=== PATIENT | female | born 1955 | race Caucasian/White ===

== ENCOUNTER → 2019-02-11 | Outpatient (CLI) | payer BC ==
[~2019-02-11] MED LIST: ACEBUTCAFT PO; AMLO5; AMOCLA875 PO; B Complete1 EACH PO; CALCA500CH PO; CETI10 PO; CITA20; CITA20 PO; CLON.1 PO; Calcium Magnes1 EAC1 PO; Celexa10 MG PO; DHEA PO; DICL50ER; Daily Multiple1 EACH PO; Diclofenac Sodi50 MG; Diclofenac Sodi50 MG PO; EZET10-20 PO; Esgic Tablet1 EACH PO; Excedrin Extra1 EACH; Excedrin Extra1 EACH PO; FURO20; FURO20 PO; HYDACE5 PO; HYDR1TAB94 PO; LISI20; LISI20 PO; LORA10 PO; LORA10ER; MOMENI; MONT10T PO; MULVITMIND PO; Mirapex0.25 MG PO; OMEP20ER; OMEP20ER PO; OMEPRAZOLE20 MG PO; OXYACE5T PO; OXYB5 PO; PHENTERMINE 30 MG; PIRO20 PO; POTCHL20ER; POTCHL20ER PO; PRAM.5 PO; Prilosec Otc20 MG PO; RANI150 PO; ROSU10TA; ROSU10TA PO; RXHYDACE PO; RXPHEN200 PO; SIMV10 PO; TRAACE; TUMERIC PO; VITAMIN B COMPLEX PO; WARF4 PO; ZOLP5 PO
== END | disposition home or self-care (01) ==
LOC: PLD 08:19 → LAB SHORT 08:19
DX: N85.8 Other specified noninflammatory disorders of uterus (principal)
CPT/HCPCS: 88305

== ENCOUNTER 2019-03-19 14:37 | Day surgery (SDC) | payer BC ==
[~2019-03-19] VITALS: Ht 157.5 cm; Wt 107.7 kg
--- NOTE | 2019-03-19 16:31 | NUR ---
03/19/19 1631 Tegan Pearson PT REQUIRING SUPPLEMENTAL OXYGEN AT THIS TIME. ENCOURAGING PT TO COUGH AND TAKE SLOW, DEEP BREATHS
--- NOTE | 2019-03-19 16:50 | NUR ---
03/19/19 1650 Tegan Pearson PT CHATTING WITH AT BEDSIDE. PT DENIES PAIN AND NAUSEA AT THIS TIME. TOLERATING PO FLUIDS AND COOKIES WELL. VSS. MINIMAL RED BLOOD IN PAD PRIOR TO TRANSFER, APPROXIMATELY 1/2 TABLESPOON
== END 2019-03-19 17:15 | disposition home or self-care (01) ==
LOC: ORSCSDS 14:37
PROVIDERS: Obstetrics & Gynecology
PROC: 0UDB8ZX Extraction of Endometrium, Via Natural or Artificial Opening Endoscopic, Diagnostic (ICD-10-PCS; principal; 2019-03-19 16:00)
PROC: 0UB98ZX Excision of Uterus, Via Natural or Artificial Opening Endoscopic, Diagnostic (ICD-10-PCS; principal; 2019-03-19 16:00)
DX: N95.0 Postmenopausal bleeding (principal); N84.0 Polyp of corpus uteri; R93.89 Abnormal findings on diagnostic imaging of other specified body structures; I10 Essential (primary) hypertension; G47.33 Obstructive sleep apnea (adult) (pediatric); J45.909 Unspecified asthma, uncomplicated; E78.5 Hyperlipidemia, unspecified; E66.01 Morbid (severe) obesity due to excess calories; Z68.41 Body mass index [BMI] 40.0-44.9, adult; Z79.899 Other long term (current) drug therapy
CPT/HCPCS: 88305; J1885; J2405; J2704; J2765; J3010

== ENCOUNTER → 2020-09-30 | Outpatient (CLI) | payer BC ==
[~2020-09-30] MED LIST changes: +Ativan1 MG; +DICL25ER PO; +Diclofenac Pota50 MG PO
== END | disposition home or self-care (01) ==
LOC: LAB SHORT 11:00 → LAB 11:00
DX: R30.0 Dysuria (principal)
CPT/HCPCS: 87077; 87086; 87186

== ENCOUNTER → 2021-02-22 | Outpatient (CLI) | payer BC | END | disposition home or self-care (01) | LOC: LAB SHORT 08:16 → LAB 08:16 | DX: L82.1 Other seborrheic keratosis (principal); D22.72 Melanocytic nevi of left lower limb, including hip | CPT/HCPCS: 88305 ==

== ENCOUNTER 2021-04-03 06:21 | Day surgery (SDC) | payer BC ==
[~2021-04-03] VITALS: Ht 157.5 cm; Wt 111.6 kg
[~2021-04-03 06:21] MED LIST changes: +METO25ER
[2021-04-03] MEDS ORDERED: Aspir 8181 MG PO (07:00)
[2021-04-03] MEDS ORDERED: TRAM50 PO (07:02)
--- NOTE | 2021-04-03 08:12 | NUR ---
04/03/21 0812 Adan Cartwright 1 MG EPI ADDED TO THE FIRST BAG OF LR PER ORDER FOR IRRIGATION.
--- NOTE | 2021-04-03 13:11 | NUR ---
04/03/21 1311 Anusha Latif LATE ENTRY:1039 PATIENT RESTING IN [facility] WITH OXYGEN VIA FACEMASK RUNNING AT 10L WITH SP02 AT 90%. PATIENT RESPONDS APPROPRIATELY TO VOICE COMMANDS. PATEINT STILL WITH EXPIRATORY WHEEZING. 1045: PATIENT MUCH MORE ALERT AND ORIENTED STATING SHE IS COMFORTABLE TO GET UP TO CHAIR. PATIENT ON 5L VIA FACEMASK WITH SPO2 OF 91% WHILE SITTING AT BEDSIDE BEFORE TRANSER. PATIENT ASSISTED TO BEDSIDE LOUNGER CHAIR AT 1046 WITH TWO PERSON ASSIST. PATIENT ALMOST IMMEDIATELY AFTER BEING TRANSFERRED TO CHAIR HOLDING THROAT STATING CANT BREATH ATTMEPTING TRIPOD POSITIONING. OXYGEN STILL BEING ADMINISTERED AT 10L VIA FACEMASK INCREASED TO 15L. SP02 CONTINUED TO TREND DOWN TO LOW 57, WITH MOTTLING OF SKIN, AND PATIENT BECOMING LESS RESPONSIVE TO VERBAL STIMULI. CALLED FOR ASSISTANCE DUE TO UNSTABLE VS AND EPISODE AT 1048. ORDERED DUONEB WHICH WAS STARTED AT 1050 AND THEN CALLED FOR WHO WAS ANESTHELOGIST FOR PATIENT. ARRIVED AT 1052 TO BEDSIDE TO ASSESS PATIENT. PATIENTS SATS AND BREATHING CONTINUED TO BECOME MORE LABORED, WET SOUNDING, WITH EXPIRATORY WHEEZING. ORDERED FOR STAT CHEST X RAY AND TO MOVE PATIENT BACK TO [facility] PATIENT TRANSFERRED BACK TO [facility] AT 1057. PATIENTS SATURATION LEVEL WAS IN MID 60'S TO LOW 70'S IN [facility] W OXYGEN STILL AT 15L FACEMASK. INSERTED ORAL AIRWAY AT 1058. PATIENT TRANSFERRED BACK TO OR VIA [facility] WITH AT BEDSIDE AT 1059. PATIENT CONNECTED TO ANESTHESIA SET UP IN OR AT 1100. RADIOLOGY IN ROOM AT 1104 FOR CHEST X RAY. WHEN X RAY COMPLETED PATIENT MOVED TO REVERSE [place] POSITION FOR INTUBATION BY AND NG PLACEMENT THROUGH ORAL WAY FOR STOMACH SUCTION WITH POSITIVE RESULTS. CHARGE NURSE CALLED TO CALL AND INITIATE ICU PLACEMENT FOR PATIENT WELL NOTIFYING ORTHO SEO COORDINATOR SURGEONS. RADIOLOGY PROVIDER CALLED WITH X RAY RESULTS OF NEGATIVE FOR PNEOMOTHROAX TO WHILE IN OR. RT IN ROOM AT 1140 TO ASSIST WITH TRANSFER OF PATIENT TO ICU. TRANSFER STARTED WITH PORTABLE MONITORS AND AMBU RESPITATIONS VIA RT AT 1150. REPORT GIVEN AT BEDSIDE TO PRIMARY RN STUART BY THIS RN WELL FOR QUESTIONS. FAMILY NOTIFIED VIA .
== END 2021-04-03 11:50 | disposition home or self-care (01) ==
LOC: ORSCSDS 06:21
PROVIDERS: Orthopaedic Surgery
PROC: 0RNJ4ZZ Release Right Shoulder Joint, Percutaneous Endoscopic Approach (ICD-10-PCS; principal; 2021-04-03 07:30)
PROC: 0LM14ZZ Reattachment of Right Shoulder Tendon, Percutaneous Endoscopic Approach (ICD-10-PCS; principal; 2021-04-03 07:30)
PROC: 0LS34ZZ Reposition Right Upper Arm Tendon, Percutaneous Endoscopic Approach (ICD-10-PCS; principal; 2021-04-03 07:30)
DX: M75.121 Complete rotator cuff tear or rupture of right shoulder, not specified as traumatic (principal); M75.41 Impingement syndrome of right shoulder; M75.21 Bicipital tendinitis, right shoulder; I10 Essential (primary) hypertension; G47.33 Obstructive sleep apnea (adult) (pediatric); F17.210 Nicotine dependence, cigarettes, uncomplicated; E66.01 Morbid (severe) obesity due to excess calories; Z68.42 Body mass index [BMI] 45.0-49.9, adult; K21.9 Gastro-esophageal reflux disease without esophagitis; Z79.899 Other long term (current) drug therapy
CPT/HCPCS: 71045; C1713; J0171; J0690; J1100; J1940; J2250; J2370; J2405; J2704; J3010; J7120

== ENCOUNTER 2021-04-03 11:53 | Inpatient (IN) | payer BC, OTHER ==
[~2021-04-03] VITALS: Ht 157.5 cm; Wt 107.2 kg
[~2021-04-03 11:53] MED LIST changes: +Aspir 8181 MG PO; +TRAM50 PO
[2021-04-03 12:43] LABS: PCO2 Arterial 55.2 mmHg (35-45); PO2 Arterial 64.1 mmHg (80-100); pH Blood Arterial 7.26 (7.35-7.45)
[2021-04-03 13:04] LABS: BASOPHILS ABSOLUTE AUTO 0.05 K/mm3 (0.00-0.23); BASOPHILS PERCENT AUTO 0 % (0-2); EOSINOPHILS ABSOLUTE AUTO 0.08 K/mm3 (0.00-0.68); EOSINOPHILS PERCENT AUTO 1 % (0-6); Hematocrit 41.6 % (33.0-51.0); Hemoglobin 13.3 g/dL (11.5-16.0); IMMATURE GRAN ABSOLUTE AUTO 0.06 K/mm3 (0.00-0.10); IMMATURE GRAN PERCENT AUTO 0 % (0-1); LYMPHOCYTES ABSOLUTE AUTO 5.78 K/mm3 (0.84-5.20); LYMPHOCYTES PERCENT AUTO 39 % (21-46); MONOCYTES PERCENT AUTO 1 % (4-13); Mean Corpuscular HGB 29.8 pg (26.0-34.0); Mean Corpuscular Volume 93 fL (80-100); Mean Platelet Volume 10.7 fL (9.1-12.4); NEUTROPHILS PERCENT AUTO 58 % (41-73); Platelet Count 273 K/mm3 (150-400); RDW Coefficient Variation 13.3 % (11.7-14.2); RDW Standard Deviation 45.6 fL (35.1-46.3); Red Blood Cell Count 4.47 M/mm3 (3.80-5.20); White Blood Cell Count 14.77 K/mm3 (4.00-11.30)
[2021-04-03 13:20] LABS: Alanine Aminotransfer (ALT/SGP 40 U/L (12-78); Albumin, Blood 3.2 g/dL (3.4-5.0); Albumin/Globulin Ratio 0.9 (0.8-1.8); Alk Phos 104 U/L (50-136); Anion Gap 6 mmol/L (6-16); Aspartate Aminotrans (AST/SGOT 42 U/L (12-37); Bilirubin, Total 0.3 mg/dL (0.1-1.0); Blood Urea Nitrogen 11 mg/dL (8-24); Bun/Creatinine Ratio 12.9 (12.0-20.0); CO2, Blood 25 mmol/L (21-32); Calcium, Blood 8.5 mg/dL (8.5-10.1); Chloride, Blood 106 mmol/L (98-108); Creatinine, Blood 0.85 mg/dL (0.40-1.00); Globulin, Blood 3.6 g/dL (2.2-4.0); Glomerular Filtration Rate >60 (60-); Glucose, Blood 223 mg/dL (70-99); Magnesium, Blood 1.8 mg/dL (1.6-2.4); Potassium, Blood 4.3 mmol/L (3.5-5.5); Sodium, Blood 137 mmol/L (136-145); Total Protein, Blood 6.8 g/dL (6.4-8.2)
--- NOTE | 2021-04-03 13:20 | NUR ---
ASSUMING CARE OF PT. PT INTUBATED, AC 400/8/60% ATTEMPTED TO PUT PT ON PS TO PLACE TO EXTUBATE, PT FAILED ABGS DRAWN PH 7.[address] JUNIOR[address] PL[address] TO EXTUBATE IN AM. CXR TAKEN. DR JUNIOR VIEWED AT BEDSIDE CONFIRMED PLACEMENT. PT FOLLOWS COMMANDS. MEDICATED FOR PAIN.
[2021-04-03 13:40] LABS: Source, Urine Catheter
[2021-04-03 13:47] LABS: Appearance, Urine Clear (Clear); Bilirubin, Urine Neg (Neg); Blood, Urine 5+ (Neg); Color, Urine Yellow (P-Yellow); Glucose Qualitative, Urine Neg (Neg); Ketones, Urine Neg (Neg); Leukocyte Esterase, Urine 1+ (Neg); Nitrite, Urine Neg (Neg); Protein, Urine 2+ (Neg); Urobilinogen, Urine NORM (Normal)
[2021-04-03 14:00] LABS: White Blood Cells, Urine 0-2 /hpf (0-5)
[2021-04-03 14:01] LABS: Squamous Epithelial Cells Not Seen /hpf (Few)
[2021-04-03 14:02] LABS: Bacteria Few /hpf
--- NOTE | 2021-04-03 18:34 | NUR ---
SUMMERY CRITICAL TROP 0.[address] JUNIOR, REPEAT IN AM. LACTIC ACID 3.[address] JUNIOR. PT MEDICATED FOR PAIN X2 RIGHT ARM IN SLING WITH COLD THERAPY. IGOR (SON) UPDATED. EKG DONE IN CHART.
--- NOTE | 2021-04-03 21:55 | NUR ---
ASSUMED PT CARE AT 1915 PT INTUBATED AND SEDATED. VENT AC/VC 18, VT 400, PEEP 8, FIO2 35%, RR 18, SPO2 >90%. PROPOFOL AT 60MCG/KG/MIN AND NS AT 75MLS/HR VIA POWERGLIDE TO LEFT UPPER ARM. PT STILL ABLE TO OPEN EYES TO VERBAL STIMULI; MAKES PURPOSEFUL MOVEMENT TOWARD ETT. NSR HR 70'S; BP'S STABLE, SEE FLOWSHEET. OG CLAMPED. VAUGHAN CATHETER IS PATENT AND DRAINING MINIMAL AMOUNTS OF DARK CONSTANCE COLORED URINE. RIGHT SHOULDER SPLINT WAS NOT ACCURATELY PLACED D/T SHOULDER BEING ICED. THEREFORE, REMOVED COMPLETELY AT THIS TIME. NO ORDERS FOR ICING OR SPLINT PLACEMENT. DR. AYOUB CONSULTED; HOWEVER, HAS NOT BEEN NOTIFIED. WILL REACH OUT TO ANSWERING SERVICE THIS EVENING. KAYCEE HOSE REMOVED AND SCD'S PLACED. SEE SHIFT SUMMARY FOR FURTHER DETAILS.
[2021-04-04 04:35] LABS: BASOPHILS ABSOLUTE AUTO 0.02 K/mm3 (0.00-0.23); BASOPHILS PERCENT AUTO 0 % (0-2); EOSINOPHILS PERCENT AUTO 0 % (0-6); Hematocrit 38.2 % (33.0-51.0); Hemoglobin 12.4 g/dL (11.5-16.0); IMMATURE GRAN ABSOLUTE AUTO 0.06 K/mm3 (0.00-0.10); IMMATURE GRAN PERCENT AUTO 0 % (0-1); LYMPHOCYTES ABSOLUTE AUTO 5.95 K/mm3 (0.84-5.20); LYMPHOCYTES PERCENT AUTO 36 % (21-46); MONOCYTES ABSOLUTE AUTO 0.59 K/mm3 (0.16-1.47); MONOCYTES PERCENT AUTO 4 % (4-13); Mean Corpuscular HGB Conc 32.5 g/dL (31.5-36.5); Mean Corpuscular Volume 92 fL (80-100); Mean Platelet Volume 10.5 fL (9.1-12.4); NEUTROPHILS ABSOLUTE AUTO 10.16 K/mm3 (1.96-9.15); NEUTROPHILS PERCENT AUTO 61 % (41-73); Platelet Count 286 K/mm3 (150-400); RDW Coefficient Variation 13.2 % (11.7-14.2); RDW Standard Deviation 45.1 fL (35.1-46.3); Red Blood Cell Count 4.14 M/mm3 (3.80-5.20); White Blood Cell Count 16.78 K/mm3 (4.00-11.30)
--- NOTE | 2021-04-04 04:42 | NUR ---
SEDATION VACATION/SBT AT 0400 PROPOFOL WAS TURNED OFF. PT ABLE TO AROUSE VERY EASILY TO VERBAL STIMULI, WELL FOLLOW COMMANDS APPROPRIATELY. NODS HEAD YES/NO TO QUESTIONS. ABLE TO TRACK EYES AND MOVE EXTREMITIES PURPOSEFULLY. SBT STARTED AT 0 WHEN PT WAS CHANGED TO SPONTANEOUS WITH PS 8/5; FIO2 40%. VSS REMAINED STABLE, SEE FLOWSHEET. PT TOLERATED WELL, SEE RT NOTE FOR FURTHER DETAILS. PROPOFOL RESTARTED AT 40MCG/KG/MIN AND PT STILL ABLE TO OPEN EYES AND FOLLOW COMMANDS WITH MINIMAL STIMULATION. ALSO CLARIFIED THAT PT PREFERS TO BE CALLED "JUSTEN"
[2021-04-04 05:09] LABS: Alanine Aminotransfer (ALT/SGP 36 U/L (12-78); Albumin, Blood 3.2 g/dL (3.4-5.0); Albumin/Globulin Ratio 0.9 (0.8-1.8); Alk Phos 88 U/L (50-136); Anion Gap 7 mmol/L (6-16); Aspartate Aminotrans (AST/SGOT 31 U/L (12-37); Bilirubin, Total 0.4 mg/dL (0.1-1.0); Blood Urea Nitrogen 14 mg/dL (8-24); Bun/Creatinine Ratio 16.4 (12.0-20.0); CO2, Blood 24 mmol/L (21-32); Calcium, Blood 8.4 mg/dL (8.5-10.1); Chloride, Blood 103 mmol/L (98-108); Creatinine, Blood 0.85 mg/dL (0.40-1.00); Globulin, Blood 3.5 g/dL (2.2-4.0); Glomerular Filtration Rate >60 (60-); Glucose, Blood 166 mg/dL (70-99); Magnesium, Blood 1.6 mg/dL (1.6-2.4); Potassium, Blood 4.3 mmol/L (3.5-5.5); Sodium, Blood 134 mmol/L (136-145); Total Protein, Blood 6.7 g/dL (6.4-8.2)
--- NOTE | 2021-04-04 05:51 | NUR ---
END OF SHIFT SUMMARY NO SIGNIFICANT CHANGES SINCE ASSUMED CARE NOTE. SEE SEDATION VACATION/SBT NOTE FOR MORNING WEAN STATUS. VENT REMAINS AC/VC 18, VT 400, PEEP 8, FIO2 45%. PROPOFOL AT 40MCG/KG/MIN. NS AT 75ML/HR. OGT CLAMPED. ICE MACHINE REMAINS TO RIGHT SHOULDER. PT MEDICATED TWICE WITH FENTANYL THIS SHIFT; SHE IS ABLE TO NOD HEAD "YES" TO PAIN. ORDERS OBTAINED TO CHANGE FENTANYL Q4 PRN TO Q2 PRN. VAUGHAN CATHETER IS PATENT AND DRAINING DARK, CONSTANCE COLORED URINE TO GRAVITY; 500CC OUT THIS SHIFT. CRITICAL TROPONIN CALLED TO DR. JUNIOR WITH NO NEW ORDERS. HR 80'S; NSR. BP'S STABLE, SEE FLOWSHEET. TMAX 99.3. WILL CONTINUE TO MONITOR UNTIL REPORT IS HANDED OFF TO ONCOMING RN.
--- NOTE | 2021-04-04 09:19 | NUR ---
PT EXTUBATED, ON 5L NC SATS 92-95%. FOLLOWING COMMANDS. AAOX4. ABLE TO COUGH AND CLEAR OWN SECRETIONS. DENIES PAIN. ORIENTED TO UNIT AND USE OF CALL HOOK
[2021-04-04 13:13] LABS: CPK Creatine Kinase 175 U/L (26-193)
[2021-04-04 15:48] LABS: International Normalized Ratio 0.98; Prothrombin Time Results 10.3 Sec (9.7-11.5)
--- NOTE | 2021-04-04 18:01 | NUR ---
SHIFT SUMMERY CTA= + FOR P.E TX HEPARIN GTT INFUSING RESP: NC WEANED OFF PT NOW ON RA HOME MEDS STARTED PAIN MGT. PRN MEDS GIVEN RIGHT ARM IN SLING WITH COLD THERAPY 20MINS ON EVERY HOUR
--- NOTE | 2021-04-04 19:10 | NUR ---
Assumed care. Report received from anaid CARSON. Pt sitting in recliner watching TV at this time. Patient pleasant and cooperative, alert and oriented X 4. Pt on room air. Powerglide in TOMAS, IV access in R/hand. Heparin drip 15 units/kg/hr. Welch catheter in place, draining yellow urine. No acute needs noted at this time, will continue to monitor.
[2021-04-05 05:05] LABS: BASOPHILS ABSOLUTE AUTO 0.07 K/mm3 (0.00-0.23); BASOPHILS PERCENT AUTO 1 % (0-2); EOSINOPHILS ABSOLUTE AUTO 0.12 K/mm3 (0.00-0.68); EOSINOPHILS PERCENT AUTO 1 % (0-6); Hematocrit 38.4 % (33.0-51.0); Hemoglobin 12.2 g/dL (11.5-16.0); IMMATURE GRAN ABSOLUTE AUTO 0.09 K/mm3 (0.00-0.10); IMMATURE GRAN PERCENT AUTO 1 % (0-1); LYMPHOCYTES ABSOLUTE AUTO 6.65 K/mm3 (0.84-5.20); LYMPHOCYTES PERCENT AUTO 46 % (21-46); MONOCYTES ABSOLUTE AUTO 0.56 K/mm3 (0.16-1.47); MONOCYTES PERCENT AUTO 4 % (4-13); Mean Corpuscular HGB 29.2 pg (26.0-34.0); Mean Corpuscular HGB Conc 31.8 g/dL (31.5-36.5); Mean Corpuscular Volume 92 fL (80-100); Mean Platelet Volume 10.4 fL (9.1-12.4); NEUTROPHILS ABSOLUTE AUTO 6.93 K/mm3 (1.96-9.15); NEUTROPHILS PERCENT AUTO 48 % (41-73); Platelet Count 269 K/mm3 (150-400); RDW Coefficient Variation 13.6 % (11.7-14.2); RDW Standard Deviation 46.1 fL (35.1-46.3); Red Blood Cell Count 4.18 M/mm3 (3.80-5.20); White Blood Cell Count 14.42 K/mm3 (4.00-11.30)
[2021-04-05 05:39] LABS: Anion Gap 8 mmol/L (6-16); Blood Urea Nitrogen 17 mg/dL (8-24); CO2, Blood 26 mmol/L (21-32); Calcium, Blood 9.2 mg/dL (8.5-10.1); Chloride, Blood 102 mmol/L (98-108); Creatinine, Blood 0.81 mg/dL (0.40-1.00); Glomerular Filtration Rate >60 (60-); Glucose, Blood 145 mg/dL (70-99); Magnesium, Blood 2.2 mg/dL (1.6-2.4); Phosphorus, Blood 2.3 mg/dL (2.5-4.9); Potassium, Blood 3.8 mmol/L (3.5-5.5); Sodium, Blood 136 mmol/L (136-145)
--- NOTE | 2021-04-05 06:27 | NUR ---
Shift summary. Pt continued in recliner throughout shift. On room air. Patient able to sleep periodically througout shift, pleasant and cooperative when awake. Patient has powerglide to TOMAS and IV access in R/hand. Pt given doses of PRN fentanyl, 25 mcg, throughout shift for pain at R/shoulder surgical site as well as PO pain meds. Patient reported pain relief from the Fentanyl doses. Critical lab value reported this morning, troponin 1.67, up from 1.57 yesterday, no new orders. Heparin running at 17 units/kg/hr. Welch catheter in place. No acute needs at this time, will continue to monitor and report off to dayshift RN.
--- NOTE | 2021-04-05 08:30 | NUR ---
INITIAL ASSESSMENT PATIENT ALERT AND ORIENTED X 4, AFEBRILE. PATIENT BEING GIVEN PRN PAIN MEDICATIONS FOR COMPLAINT OF PAIN IN R SHOULDER. R SHOULDER IMMOBILIZER IN PLACE. DR. AYOUB HERE THIS AM TO CHANGE AQUACELL DRESSING. PATIENT AFEBRILE. LUNGS CLEAR T/O. PATIENT SATTING 90% AND GREATER ON RA. PATIENT IN SR, HR IN THE 70S. SBP IN THE 130S. DEPENDENT EDEMA NOTED IN BLES. GI WNL. VAUGHAN DRAINING CONSTANCE COLORED URINE. BRUISING TO BILAT ISCHIAL TUBEROSITIES. HEPARIN INFUSING AT 17 UNITS/ KG/ HOUR. PATIENT IN CHAIR. CALL LIGHT IN REACH. WILL CONTINUE TO MONITOR FREQUENTLY THROUGHOUT SHIFT.
--- NOTE | 2021-04-05 10:16 | NUR ---
SPOKE WITH DR. VENEGAS. INFORMED THAT DR. AYOUB SAW PATIENT THIS AM, CHANGED DRESSING, AND STATED THAT FROM SURGICAL POINT OF VIEW THAT PATIENT IS OKAY TO BE DISCHARGED HOME. INFORMED THAT DR. TAPIA ALSO IN TO VISIT PATIENT SHORT TIME AFTER DR. AYOUB. INFORMED THAT DR. TAPIA STATED THAT FROM CARDIO POINT OF VIEW THAT PATIENT IS ALSO OKAY TO BE DISCHARGED HOME. INFORMED THAT DR. TAPIA STATED HOSPITALIST WILL NEED TO CONVERT PATIENT FROM HEPARIN TO XARELTO AND THAT ECHO NEEDED TO BE PERFORMED PRIOR TO LEAVING HOSPITAL. DR. VENEGAS STATED THAT SHE WOULD ROUND ON PATIENT THIS AM. NO ORDERS OBTAINED AT THIS TIME .
[2021-04-05] MEDS ORDERED: CELEXA40 M1 PO (13:07)
[2021-04-05] MEDS ORDERED: METO25 PO (13:08)
[2021-04-05] MEDS ORDERED: SPIR25 PO (13:10)
[2021-04-05] MEDS ORDERED: XARELTO20 MG PO (13:11)
--- NOTE | 2021-04-05 14:11 | NUR ---
SHIFT SUMMARY/ DISCHARGE PATIENT REMAINED ALERT AND ORIENTED X 4, AFEBRILE. PATIENT CONTINUED TO RECEIVE PRN PAIN MEDICATIONS FOR COMPLAINT OF R SHOULDER PAIN. SHOULDER REMAINED IN IMMOBILIZER. PATIENT REMAINED SATTING HIGH 90S ON RA. PATIENT REMAINED IN SR. HR 60S TO 70S. SBP IN THE 130S. GI REMAINED WNL. PATIENT HAD GOOD APPETITE. NO BM THIS SHIFT. VAUGHAN DRAINED ADEQUATE AMOUNT OF CONSTANCE COLORED URINE. VAUGHAN DC'D IN AM. PATIENT HAS VOIDED SINCE. NO CHANGES TO SKIN NOTED. PATIENT HAS BEEN SHIFTING OWN HIPS IN CHAIR. HEPARIN DC'D THIS SHIFT AND SCHEDULED XARELTO STARTED. EKG PERFORMED THIS SHIFT. LIMITED ECHO PERFORMED THIS SHIFT. FLU VACCINE GIVEN THIS SHIFT AT PATIENT REQUEST. PATIENT RECEIVED KPHOS FOR PHOS OF 2.3 THIS AM. PATIENT HAD COMPLETE CHAIR BATH. STAFF ASSISTING PATIENT AT THIS TIME TO GET DRESSED WILL BE DISCHARGED TO HOME. FAMILY PICKING PATIENT UP AT 1430 AT PATIENT ENTRANCE. PATIENT GIVEN DISCHARGE INSTRUCTIONS. PATIENT GIVEN AQUACEL DRESSINGS FOR HOME. PATIENT INFORMED THAT NEW PRESCRIPTIONS CALLED IN TO [facility]. PATIENT STATES THAT SHE UNDERSTANDS ALL DISCHARGE INFORMATION INCLUDING SHOULDER SURGERY CARE.
--- NOTE | 2021-04-05 14:30 | NUR ---
PATIENT SUCCESSFULLY DISCHARGED. ALL BELONGINGS SENT HOME WITH PATIENT. PATIENT WHEELED OUT BY MANAGER PSYCHOLOGY TO PATIENT ENTRANCE AND SON PICKED UP.
== END 2021-04-05 14:59 | disposition home or self-care (01) | DRG 208 ==
LOC: ICUW 11:53
PROVIDERS: Internal Medicine Cardiovascular Disease; Internal Medicine Critical Care Medicine; Nurse Practitioner Acute Care; ADMIT Internal Medicine
PROC: 5A1935Z Respiratory Ventilation, Less than 24 Consecutive Hours (ICD-10-PCS; principal; 2021-04-03)
PROC: 3E02340 Introduction of Influenza Vaccine into Muscle, Percutaneous Approach (ICD-10-PCS; 2021-04-03)
DX: J95.821 Acute postprocedural respiratory failure (principal); R65.11 Systemic inflammatory response syndrome (SIRS) of non-infectious origin with acute organ dysfunction; I50.31 Acute diastolic (congestive) heart failure; I21.4 Non-ST elevation (NSTEMI) myocardial infarction; I26.99 Other pulmonary embolism without acute cor pulmonale; J98.11 Atelectasis; E87.1 Hypo-osmolality and hyponatremia; E83.39 Other disorders of phosphorus metabolism; Z23 Encounter for immunization; E78.00 Pure hypercholesterolemia, unspecified; K21.9 Gastro-esophageal reflux disease without esophagitis; G47.33 Obstructive sleep apnea (adult) (pediatric); E78.5 Hyperlipidemia, unspecified; F41.8 Other specified anxiety disorders; E66.01 Morbid (severe) obesity due to excess calories; Z96.643 Presence of artificial hip joint, bilateral; I25.10 Atherosclerotic heart disease of native coronary artery without angina pectoris; I11.0 Hypertensive heart disease with heart failure; Z96.653 Presence of artificial knee joint, bilateral; Z99.89 Dependence on other enabling machines and devices; Z90.89 Acquired absence of other organs; Z98.890 Other specified postprocedural states; Z98.1 Arthrodesis status; Z87.891 Personal history of nicotine dependence; Z88.2 Allergy status to sulfonamides; Z88.8 Allergy status to other drugs, medicaments and biological substances; Z79.82 Long term (current) use of aspirin; Z79.899 Other long term (current) drug therapy
CPT/HCPCS: 31500; 36600; 51702; 71045; 71260; 80048; 80053; 81001; 82550; 82803; 82947; 83605; 83735; 83880; 84100; 84145; 84484; 85025; 85610; 85730; 87040; 87070; 87086; 87205; 90686; 93005; 93010; 93306; 93308; 93321; 94002; 94003; A9270; C1713; C1751; C9113; G0008; J0171; J0690; J0696; J1100; J1644; J1650; J1940; J2250; J2370; J2405; J2704; J3010; J7030; J7120; Q9967

== ENCOUNTER 2021-07-17 09:38 | Day surgery (SDC) | payer OTHER ==
[~2021-07-17] VITALS: Ht 157.5 cm; Wt 111.1 kg
[~2021-07-17 09:38] MED LIST changes: +Ativan1 MG PO; +BENZ100A PO; +BUTALB-CAFF-AC1 EACH PO; +CATAPRES0.1 MG PO; +CELEXA40 M1 PO; +CLOT10 MT; +CYCL10 PO; +FURO40 PO; +METO25 PO; +Percocet 5-3251 EACH PO; +SPIR25 PO; +XARELTO20 MG PO
[2021-07-17] MEDS ORDERED: VITAMIN B-1250 MCG PO (10:29)
--- NOTE | 2021-07-17 12:14 | NUR ---
07/17/21 1214 Adan Cartwright BLOCK COMPLETE AT OPSITE BY DR DEL TORO. SITE CHECK COMPLETE, PT TOLERATED WELL. VSS.
== END 2021-07-17 13:21 | disposition home or self-care (01) ==
LOC: ORSCSDS 09:38
PROVIDERS: Orthopaedic Surgery
PROC: 01N50ZZ Release Median Nerve, Open Approach (ICD-10-PCS; principal; 2021-07-17 11:15)
DX: G56.01 Carpal tunnel syndrome, right upper limb (principal); I10 Essential (primary) hypertension; E66.01 Morbid (severe) obesity due to excess calories; Z68.41 Body mass index [BMI] 40.0-44.9, adult; J44.9 Chronic obstructive pulmonary disease, unspecified; G47.33 Obstructive sleep apnea (adult) (pediatric); K21.9 Gastro-esophageal reflux disease without esophagitis; F41.8 Other specified anxiety disorders; Z79.01 Long term (current) use of anticoagulants; Z79.899 Other long term (current) drug therapy
CPT/HCPCS: J0690; J1885; J2001; J2250; J7120

== ENCOUNTER → 2021-11-03 | Outpatient (CLI) | payer OTHER ==
[~2021-11-03] MED LIST changes: +VITAMIN B-1250 MCG PO
== END | disposition home or self-care (01) ==
LOC: LAB SHORT 03:00 → LAB 03:00
DX: R10.84 Generalized abdominal pain (principal)
CPT/HCPCS: 87015; 87045; 87046; 87205; 87899

== ENCOUNTER 2022-02-07 21:09 | Inpatient (IN) | payer OTHER ==
[~2022-02-07] VITALS: Ht 170.2 cm; Wt 117.4 kg
[2022-02-07 21:59] LABS: Hemoglobin 13.8 g/dL (11.5-16.0); Mean Corpuscular HGB 30.5 pg (26.0-34.0); Mean Corpuscular HGB Conc 32.9 g/dL (31.5-36.5); Mean Corpuscular Volume 93 fL (80-100); Mean Platelet Volume 10.5 fL (9.1-12.4); Platelet Count 278 K/mm3 (150-400); RDW Standard Deviation 51.7 fL (35.1-46.3); Red Blood Cell Count 4.52 M/mm3 (3.80-5.20); White Blood Cell Count 13.77 K/mm3 (4.00-11.30)
[2022-02-07 22:13] LABS: Albumin/Globulin Ratio 1.1 (0.8-1.8); Bilirubin, Total 0.5 mg/dL (0.1-1.0); C-REACTIVE PROTEIN, EXT RANGE 0.338 mg/dL (0.000-0.300); Calcium, Blood 9.6 mg/dL (8.5-10.1); Creatinine, Blood 0.82 mg/dL (0.40-1.00); Globulin, Blood 3.5 g/dL (2.2-4.0); Magnesium, Blood 2.2 mg/dL (1.6-2.4); Potassium, Blood 4.7 mmol/L (3.5-5.5); Total Protein, Blood 7.5 g/dL (6.4-8.2)
[2022-02-07 22:26] LABS: Base Excess Venous 0.5 mmol/L; Bicarbonate Venous 24.8 mmol/L (24.0-30.0); PCO2 Venous 41.7 mmHg (38-42); pH Blood Venous 7.39 (7.34-7.37)
[2022-02-07 22:44] LABS: BASOPHILS PERCENT MAN 0 % (0-2); EOSINOPHILS ABSOLUTE MAN 0.27 K/mm3 (0.00-0.68); EOSINOPHILS PERCENT MAN 2 % (0-6); LYMPHOCYTES % ATYPICAL MANUAL 1 % (0-0); LYMPHOCYTES ABSOLUTE MAN 8.81 K/mm3 (0.84-5.20); LYMPHOCYTES PERCENT MAN 63 % (21-46); MONOCYTES ABSOLUTE MAN 0.27 K/mm3 (0.16-1.47); MONOCYTES PERCENT MAN 2 % (4-13); MYELOCYTE ABSOLUTE MAN 0.13 K/mm3 (0.00-0.00); MYELOCYTE PERCENT MAN 1 % (0-0); NEUTROPHILS ABSOLUTE MAN 4.26 K/mm3 (1.96-9.15); SEG NEUTROPHILS PERCENT MAN 31 % (41-73); TOTAL CELLS COUNTED 100
[2022-02-07 22:48] LABS: Influenza A, PCR NEGATIVE (NEGATIVE); Influenza B, PCR NEGATIVE (NEGATIVE); Resp Syncytial Virus, PCR NEGATIVE (NEGATIVE); SARS-Cov-2 (COVID-19) PCR, MMC NEGATIVE (NEGATIVE)
[2022-02-07 23:39] LABS: Source, Urine Straight Cath
[2022-02-07 23:47] LABS: Bilirubin, Urine Neg (Neg); Blood, Urine 1+ (Neg); Glucose Qualitative, Urine Neg (Neg); Ketones, Urine 1+ (Neg); Leukocyte Esterase, Urine 2+ (Neg); Nitrite, Urine Neg (Neg); Protein, Urine 2+ (Neg); Specific Gravity, Urine 1.025 (1.003-1.022); Urobilinogen, Urine 1+ (Normal)
[2022-02-07 23:51] LABS: Appearance, Urine Hazy (Clear); Color, Urine Yellow (P-Yellow)
[2022-02-07 23:53] LABS: Amorphous Mod (0-Heavy); Bacteria Many /hpf; Squamous Epithelial Cells Mod /hpf (Few); White Blood Cells, Urine 25-50 /hpf (0-5)
[2022-02-08 00:32] LABS: U Amphetamine Screen Not Detected; U Barbituate Screen Not Detected; U Benzodiazapine Screen DETECTED; U Buprenorphine Screen Not Detected; U Cannabinoids Screen Not Detected; U Cocaine Screen Not Detected; U Methadone Screen Not Detected; U Methamphetamine Screen Not Detected; U Opiates Screen Not Detected; U Oxycodone Screen DETECTED; U Phencyclidine Screen Not Detected; U Propoxyphene Screen Not Detected
[2022-02-08] MEDS ORDERED: CITALOPRAM HBR10 MG PO (01:12)
[2022-02-08] MEDS ORDERED: ASPI81CH PO (01:12)
[2022-02-08] MEDS ORDERED: CYCL10 PO (01:14)
[2022-02-08 04:07] LABS: Hematocrit 37.3 % (33.0-51.0); Hemoglobin 11.8 g/dL (11.5-16.0); Mean Corpuscular HGB 30.1 pg (26.0-34.0); Mean Corpuscular HGB Conc 31.6 g/dL (31.5-36.5); Mean Corpuscular Volume 95 fL (80-100); Mean Platelet Volume 10.3 fL (9.1-12.4); Platelet Count 243 K/mm3 (150-400); RDW Standard Deviation 52.2 fL (35.1-46.3); Red Blood Cell Count 3.92 M/mm3 (3.80-5.20); White Blood Cell Count 10.96 K/mm3 (4.00-11.30)
[2022-02-08 04:27] LABS: Albumin, Blood 3.5 g/dL (3.4-5.0); Albumin/Globulin Ratio 1.2 (0.8-1.8); Bilirubin, Total 0.4 mg/dL (0.1-1.0); Bun/Creatinine Ratio 15.5 (12.0-20.0); Calcium, Blood 8.7 mg/dL (8.5-10.1); Creatinine, Blood 0.84 mg/dL (0.40-1.00); Potassium, Blood 4.3 mmol/L (3.5-5.5); Total Protein, Blood 6.5 g/dL (6.4-8.2)
[2022-02-08 04:30] LABS: BAND PERCENT MAN 1 % (0-8); BASOPHILS PERCENT MAN 0 % (0-2); EOSINOPHILS PERCENT MAN 0 % (0-6); LYMPHOCYTES ABSOLUTE MAN 7.67 K/mm3 (0.84-5.20); LYMPHOCYTES PERCENT MAN 70 % (21-46); MONOCYTES PERCENT MAN 1 % (4-13); NEUTROPHILS ABSOLUTE MAN 3.17 K/mm3 (1.96-9.15); SEG NEUTROPHILS PERCENT MAN 28 % (41-73); TOTAL CELLS COUNTED 100
--- NOTE | 2022-02-08 06:27 | NUR ---
SHIFT SUMMARY/ADMIT PT ARRIVED TO PCU FROM ED VIA ED STRETCHER AT APPROX 0200. PT WAS SLID BY 5 STAFF FROM ED STRETCHER TO PCU BED. PT LETHARGIC, ABLE TO AWAKEN TO NAME BUT QUICKLY GOES BACK TO SLEEP. PT CONFUSED. WILL ALSO SIT UP SUDDENLY AND NOT KNOW WHERE SHE IS, REMINDED SHE IS IN HOSPITAL AND PT GOES BACK TO SLEEP. PT STATES SHE DOES NOT KNOW/REMEMBER WHY SHE IS SO LETHARGIC. SP02>90% ON 2L/CPAP AT [facility]. TELEMETRY SHOWS NSR HR MOSTLY 70'S. DENIES PAIN. PURWIK DRAINING URINE TO SUCTION. NO BM. REPSITIONED SELF IN BED. CALL LIGHT IN REACH. BED ALARM ON.
--- NOTE | 2022-02-08 11:29 | NUR ---
Pt. is awake in bed and welcomes my visit. Family members are present. Pt. is unsettled about diet restrctions, but gives evidence of understanding why. Establish rapport. [place] for Pt. and family. Pt. and family both verbalize gratitude for the spiritual care visit.
--- NOTE | 2022-02-08 11:31 | NUR ---
Spiritual Care Visit. Pt. is awake in bed and welcmes my visit. Spouse if present. Pt. is mildly unsettled about his diagnosis. Listen empathetically with a calming presence. Establish rapport. Prayed with Pt. and spouse, and both verbalized gratitude for the spiritual care visit.
--- NOTE | 2022-02-08 17:08 | NUR ---
1210 PT AWAKENS TO VERBAL STIMULI. ORIENTED X4, PT RECALLS BEING WEAK AND NOT FEELING WELL FOR SEVERAL DAYS AT HOME BUT ASKS HOW SHE GOT HERE. PT ABLE TO GIVE A PARTIAL LIST OF HER MEDS AND DOSES WHICH MATCHES LIST BROUGHT IN BY HER ROOMMATE. TEENA REMOVED PER PATIENT REQUEST AND ATTENDS PLACED. FAMILY MEMBERS HERE TO VISIT
--- NOTE | 2022-02-08 17:10 | NUR ---
PT TELLS ME SHE IS VERY TIRED, ORIENTED X4 AND IS ABLE TO RECALL WY SHE IS IN HOSPITAL. PT DENIES ANY PAIN AT THIS TIME- REPORTS HEADACHE RESOLVED AFTER TYLENOL. PT OOB WITH 2 PERSON ASSIST. TELE IS SR. OXYGEN IN PLACE AT 2 LITERS, FAMILY BROUGHT IN HOME CPAP. FAMILY AT BEDSIDE MUCH OF SHIFT AND ATTENTIVE TO PATIENT. PT IS HOPING FOR DISCHARGE IN AM
--- NOTE | 2022-02-09 06:00 | NUR ---
SHIFT SUMMARY Assumed care of pt at 1900, A/Ox3-4, very forgetful of the event that brought her here. C/o headache that is familiar to patient, tylenol not sufficient according to pt, other PRN helped. Some weakness, but able to be SBA w/FWW to bathroom. Maintains over 95% on 2L NC, without NC sats around 92%. CPAP at HS. LS clear on top and dim at bases. SR on tele 70's, strong +2 pulses t/o. Some urinary incontinence noted, attends in place. VSS. Denies any CP/pressure. Will report to dayshift RN.
--- NOTE | 2022-02-09 15:57 | NUR ---
SHIFT SUMMARY: NO ACUTE CHANGES TO PT CONDITION T/OUT THE DAY. PT ALERT, ORIENTED TO SELF, LOCATION, CURRENT SITUATION. PT DOES FALL ASLEEP QUICKLY T/OUT DAY BUT WAKES EASILY UPON STAFF/VISITOR ENTRANCE TO ROOM. O2 SATS MAINTAINED >93% ON RA, CPAP AT BEDSIDE. SR ON MONITOR, RATE 60-70s. PT SPENDS MOST OF THE DAY IN BEDSIDE RECLINER. PT MEDICATED PER EMAR FOR C/O HEADACHE. AT THIS TIME, PT RESTING IN BED W/VISITORS AT BEDSIDE. REPORT HAS BEEN GIVEN TO YAMILETH BABB TO ASSUME CARE OF PT.
--- NOTE | 2022-02-09 16:01 | NUR ---
REPORT RECIEVED FROM YAMILETH NIXON. FAMILY AT BEDSIDE. PT DENIES NEEDS OR CONCERNS AT THIS TIME.
--- NOTE | 2022-02-09 18:43 | NUR ---
SHIFT SUMMARY: PT MEDICATED X1 FROM THIS RN FOR HEADACHE. NEW ORDERS PER DR VENEGAS. CALLED TO VERIFY DUE TO BEING TOLD IN REPORT THAT PT WOULD DC HOME TOMORROW. DR CONFIRMS THAT ORDERS ARE FOR THIS PT AND WILL DETERMINE IF PT GOES HOME TOMORROW. PT'S FRIENDS WERE AT BEDSIDE MOST OF THE DAY. NO ACUTE NEEDS OR CONCERNS AT THIS TIME.
[2022-02-10 04:23] LABS: Hematocrit 35.8 % (33.0-51.0); Hemoglobin 11.6 g/dL (11.5-16.0); Mean Corpuscular HGB 30.4 pg (26.0-34.0); Mean Corpuscular HGB Conc 32.4 g/dL (31.5-36.5); Mean Corpuscular Volume 94 fL (80-100); Mean Platelet Volume 10.7 fL (9.1-12.4); Platelet Count 251 K/mm3 (150-400); RDW Coefficient Variation 14.8 % (11.7-14.2); RDW Standard Deviation 51.3 fL (35.1-46.3); Red Blood Cell Count 3.81 M/mm3 (3.80-5.20); White Blood Cell Count 10.84 K/mm3 (4.00-11.30)
[2022-02-10 04:48] LABS: Albumin, Blood 3.6 g/dL (3.4-5.0); Anion Gap 7 mmol/L (6-16); Blood Urea Nitrogen 12 mg/dL (8-24); Bun/Creatinine Ratio 15.7 (12.0-20.0); CO2, Blood 25 mmol/L (21-32); Calcium, Blood 9.3 mg/dL (8.5-10.1); Chloride, Blood 104 mmol/L (98-108); Creatinine, Blood 0.76 mg/dL (0.40-1.00); Glomerular Filtration Rate 87 (60-); Glucose, Blood 140 mg/dL (70-99); Lactate Dehydrogenase (Ld),Bld 195 U/L (100-240); Phosphorus, Blood 2.8 mg/dL (2.5-4.9); Potassium, Blood 4.6 mmol/L (3.5-5.5); Sodium, Blood 136 mmol/L (136-145)
--- NOTE | 2022-02-10 06:01 | NUR ---
SHIFT SUMMARY Patient slept for most of the night. Still c/o headache. VSS on RA. No acute changes. Will report to dayshift YAMILETH.
[2022-02-10 06:49] LABS: BASOPHILS PERCENT MAN 0 % (0-2); EOSINOPHILS PERCENT MAN 1 % (0-6); LYMPHOCYTES PERCENT MAN 72 % (21-46); MONOCYTES ABSOLUTE MAN 0.32 K/mm3 (0.16-1.47); MONOCYTES PERCENT MAN 3 % (4-13); SEG NEUTROPHILS PERCENT MAN 24 % (41-73); TOTAL CELLS COUNTED 100
[2022-02-10] MEDS ORDERED: MIRALAX17 GM PO (12:57)
[2022-02-10] MEDS ORDERED: B-12500 MC2 PO (12:57)
[2022-02-10] MEDS ORDERED: VISBIOME 112.51 EACH PO (12:58)
[2022-02-10] MEDS ORDERED: NYST237S MT (12:59)
[2022-02-10] MEDS ORDERED: Diflucan100 MG PO (12:59)
[2022-02-10] MEDS ORDERED: LEVOFLOXACIN750 MG PO (13:00)
--- NOTE | 2022-02-10 13:28 | NUR ---
DISCHARGE: PT HAS BEEN CLEARED FOR DISCHARGE BY DR VENEGAS. IV ACCESS HAS BEEN DC'd WNL. PT DRESSES INDEPENDENTLY. PT AND FAMILY PROVIDED WITH DC INSTRUCTIONS/PAPERWORK, ALL QUESTIONS HAVE BEEN ANSWERED. PT ESCORTED FROM UNIT VIA W/C W/OUT INCIDENT.
== END 2022-02-10 13:30 | disposition home or self-care (01) | DRG 871 ==
LOC: ER 21:09 → PCU 23:59 → ER 02-08 01:00 → PCU 02-08 01:00
PROVIDERS: Internal Medicine; Student in an Organized Health Care Education/Training Program; ADMIT Internal Medicine
PROC: 3E03329 Introduction of Other Anti-infective into Peripheral Vein, Percutaneous Approach (ICD-10-PCS; 2022-02-07)
PROC: 5A09357 Assistance with Respiratory Ventilation, Less than 24 Consecutive Hours, Continuous Positive Airway Pressure (ICD-10-PCS; principal; 2022-02-08)
DX: A41.9 Sepsis, unspecified organism (principal); G92.8 Other toxic encephalopathy; J96.01 Acute respiratory failure with hypoxia; N39.0 Urinary tract infection, site not specified; D72.820 Lymphocytosis (symptomatic); E66.9 Obesity, unspecified; J44.9 Chronic obstructive pulmonary disease, unspecified; I10 Essential (primary) hypertension; Z20.822 Contact with and (suspected) exposure to COVID-19; E78.5 Hyperlipidemia, unspecified; F32.A Depression, unspecified; Z86.73 Personal history of transient ischemic attack (TIA), and cerebral infarction without residual deficits; K21.9 Gastro-esophageal reflux disease without esophagitis; Z79.899 Other long term (current) drug therapy; Z79.82 Long term (current) use of aspirin; Z88.2 Allergy status to sulfonamides; Z88.8 Allergy status to other drugs, medicaments and biological substances; Z86.711 Personal history of pulmonary embolism; Z85.3 Personal history of malignant neoplasm of breast; Z96.653 Presence of artificial knee joint, bilateral; Z96.643 Presence of artificial hip joint, bilateral; Z98.890 Other specified postprocedural states; Z87.891 Personal history of nicotine dependence; Z68.37 Body mass index [BMI] 37.0-37.9, adult; T42.4X5A Adverse effect of benzodiazepines, initial encounter; T40.2X5A Adverse effect of other opioids, initial encounter
CPT/HCPCS: 0241U; 36415; 51701; 70450; 71045; 71260; 80053; 80069; 81001; 82140; 82550; 82803; 83605; 83615; 83735; 83880; 84145; 85025; 85379; 85651; 86140; 87040; 87086; 93005; 93010; 94640; 94660; 94664; 94760; 94762; 96365-59; 96375; 96375-59; 99285-25; A9270; J0456; J0696; J1650; J2310; J7030; J7050; Q9967

== ENCOUNTER → 2022-06-04 | Outpatient (CLI) | payer OTHER ==
[~2022-06-04] MED LIST changes: +ASPI81CH PO; +B-12500 MC2 PO; +CITALOPRAM HBR10 MG PO; +Diflucan100 MG PO; +LEVOFLOXACIN750 MG PO; +MIRALAX17 GM PO; +NYST237S MT; +VISBIOME 112.51 EACH PO
== END | disposition home or self-care (01) ==
LOC: LAB SHORT 13:26
DX: K14.8 Other diseases of tongue (principal)
CPT/HCPCS: 88305; 88312

== ENCOUNTER 2022-12-05 08:10 | Day surgery (SDC) | payer OTHER ==
[~2022-12-05] VITALS: Ht 157.5 cm; Wt 108.0 kg
[2022-12-05] MEDS ORDERED: TRAZ50 PO (08:43)
[2022-12-05] MEDS ORDERED: IBU800 MG PO (08:53)
[2022-12-05 10:40] VITALS: BP 109/60
== END 2022-12-05 10:42 | disposition home or self-care (01) ==
LOC: ORSCSDS 08:10
PROVIDERS: Internal Medicine Gastroenterology
PROC: 0DBK8ZX Excision of Ascending Colon, Via Natural or Artificial Opening Endoscopic, Diagnostic (ICD-10-PCS; principal; 2022-12-05 09:45)
PROC: 0DBL8ZX Excision of Transverse Colon, Via Natural or Artificial Opening Endoscopic, Diagnostic (ICD-10-PCS; principal; 2022-12-05 09:45)
DX: Z12.11 Encounter for screening for malignant neoplasm of colon (principal); D12.3 Benign neoplasm of transverse colon; D12.2 Benign neoplasm of ascending colon; K57.30 Diverticulosis of large intestine without perforation or abscess without bleeding; E66.01 Morbid (severe) obesity due to excess calories; Z68.41 Body mass index [BMI] 40.0-44.9, adult; I10 Essential (primary) hypertension; G47.33 Obstructive sleep apnea (adult) (pediatric); K21.9 Gastro-esophageal reflux disease without esophagitis; E78.00 Pure hypercholesterolemia, unspecified; Z79.899 Other long term (current) drug therapy; F32.A Depression, unspecified
CPT/HCPCS: 88305; J2704; J7120

== ENCOUNTER → 2023-03-04 | Outpatient (CLI) | payer OTHER ==
[~2023-03-04] MED LIST changes: +IBU800 MG PO; +TRAZ50 PO
== END | disposition home or self-care (01) ==
LOC: LAB 15:54 → LAB SHORT 15:54
DX: R10.9 Unspecified abdominal pain (principal)
CPT/HCPCS: 87077; 87086; 87186

== ENCOUNTER → 2023-05-22 | Outpatient (CLI) | payer OTHER | LOC: LAB 10:51 → LAB SHORT 10:51 | DX: K12.1 Other forms of stomatitis (principal); C91.10 Chronic lymphocytic leukemia of B-cell type not having achieved remission | CPT/HCPCS: 88305; 88312 ==

== ENCOUNTER → 2023-09-30 | Outpatient (CLI) | payer OTHER | LOC: LAB SHORT 13:34 → LAB 13:34 | DX: R39.15 Urgency of urination (principal) | CPT/HCPCS: 87077; 87086; 87186 ==

== ENCOUNTER → 2023-12-25 | Outpatient (CLI) | payer OTHER | LOC: LAB SHORT 15:32 → LAB 15:32 | DX: R82.90 Unspecified abnormal findings in urine (principal) | CPT/HCPCS: 87077; 87086; 87186 ==

== ENCOUNTER → 2024-05-25 | Outpatient (CLI) | payer OTHER | END | disposition home or self-care (01) | LOC: LAB 16:23 → LAB SHORT 16:23 | DX: R30.0 Dysuria (principal) | CPT/HCPCS: 87077; 87086; 87186 ==

== ENCOUNTER → 2024-09-24 | Outpatient (CLI) | payer OTHER | LOC: LAB 17:29 → LAB SHORT 17:29 | DX: R30.0 Dysuria (principal) | CPT/HCPCS: 87077; 87086; 87186 ==